=== PATIENT | female | born 1945 | race Caucasian/White ===

== ENCOUNTER 2022-12-13 03:46 | Inpatient (IN) | payer MEDICARE, OTHER ==
[2022-12-13] MEDS ORDERED: Sodium Chloride 0.9% 1,000 ML IV ONE ×2 (04:27→07:00)
[2022-12-13] MEDS ORDERED: Pantoprazole 40 MG Vial IVPUSH ONE (04:28)
[2022-12-13 04:33] LABS: BASOPHILS ABSOLUTE AUTO 0.02 K/mm3 (0.01-0.08); BASOPHILS PERCENT AUTO 0.2 % (0.1-1.2); EOSINOPHILS ABSOLUTE AUTO 0.03 K/mm3 (0.04-0.36); EOSINOPHILS PERCENT AUTO 0.3 (0.7-5.8); HEMATOCRIT 28.1 % (34.1-44.9); HEMOGLOBIN 9.1 gm/dl (11.2-15.7); IMMATURE GRAN ABSOLUTE AUTO 0.03 K/mm3 (0.00-0.10); IMMATURE GRAN PERCENT AUTO 0.3 % (<=1.0); LYMPHOCYTES ABSOLUTE AUTO 2.51 K/mm3 (1.18-3.74); LYMPHOCYTES PERCENT AUTO 22.3 % (19.3-51.7); MEAN CORPUSCULAR HEMOGLOBIN 28.8 pg (25.6-32.2); MEAN CORPUSCULAR HGB CONC 32.4 g/dl (32.2-35.5); MEAN CORPUSCULAR VOLUME 88.9 fl (79.4-94.8); MEAN PLATELET VOLUME 10.8 fl (9.4-12.3); MONOCYTES ABSOLUTE AUTO 0.84 K/mm3 (0.24-0.36); MONOCYTES PERCENT AUTO 7.4 % (4.7-12.5); NEUTROPHILS ABSOLUTE AUTO 7.85 K/mm3 (1.56-6.13); NEUTROPHILS PERCENT AUTO 69.5 % (34.0-71.1); PLATELET COUNT,PLT 257 K/mm3 (182-369); RED BLOOD CELL COUNT 3.16 M/mm3 (3.98-5.22); WHITE BLOOD CELL COUNT,WBC 11.28 K/mm3 (3.98-10.04)
[2022-12-13 04:43] LABS: ALBUMIN 3.2 g/dl (3.4-5.0); ANION GAP 13.6 (5-15); BILIRUBIN TOTAL 0.2 mg/dL (0.2-1.0); BUN/CREATININE RATIO 36.2 (14-18); CALCIUM 8.4 mg/dL (8.5-10.1); CREATININE 1.3 mg/dL (0.55-1.02); EST CRCL DRUG DOSING (CG) 27.75 mL/min; MAGNESIUM 1.4 mg/dL (1.8-2.4); POTASSIUM,K 4.6 mEq/L (3.5-5.1); PROTEIN TOTAL,TP 6.4 g/dl (6.4-8.2)
[2022-12-13] MEDS: Pantoprazole 80 MG in Sodium Chloride 0.9% 100 ML IV SCH ×2 (04:46→14:15)
[2022-12-13 04:47] LABS: PROTHROMBIN TIME 10.7 SECONDS (9.7-12.0)
[2022-12-13 04:48] LABS: D-DIMER QUANTITATIVE 0.3 mg/L (0.19-0.50)
[2022-12-13 04:49] LABS: PTT,PARTIAL THROMBOPLSTIN TIME 23.5 SECONDS (21.7-31.4)
[2022-12-13] MEDS ORDERED: Iopamidol 612 MG/ML 100 ML Bottle IVPUSH ONE (04:50)
[2022-12-13] MEDS ORDERED: Magnesium Sulfate/Water 4 GM in Premix Bag 1 BAG IV ONE (05:45)
[2022-12-13] MEDS ORDERED: Docusate Sodium 100 MG Cap PO PRN (09:13)
[2022-12-13] MEDS: Sodium Chloride 0.9% 1,000 ML IV SCH (09:59)
[2022-12-13] MEDS ORDERED: Acetaminophen 325 MG Tab PO PRN (11:04)
[2022-12-13] MEDS ORDERED: Polyethylene Glycol/Electrolytes 4,000 ML Bottle PO ONE (12:00)
[2022-12-13 15:43] LABS: HEMATOCRIT 24.1 % (34.1-44.9); HEMOGLOBIN 7.6 gm/dl (11.2-15.7)
[2022-12-13] MEDS ORDERED: Sodium Chloride 0.9% 250 ML IV SCH (16:00)
[2022-12-13] MEDS: Lisinopril 20 MG Tab PO SCH (20:43)
[2022-12-14] MEDS: Pantoprazole 80 MG in Sodium Chloride 0.9% 100 ML IV SCH ×3 (00:19→21:59)
[2022-12-14] MEDS: Sodium Chloride 0.9% 1,000 ML IV SCH (00:20)
[2022-12-14 05:16] LABS: BASOPHILS ABSOLUTE AUTO 0.02 K/mm3 (0.01-0.08); BASOPHILS PERCENT AUTO 0.2 % (0.1-1.2); EOSINOPHILS ABSOLUTE AUTO 0.14 K/mm3 (0.04-0.36); EOSINOPHILS PERCENT AUTO 1.3 (0.7-5.8); HEMATOCRIT 26.9 % (34.1-44.9); HEMOGLOBIN 8.9 gm/dl (11.2-15.7); IMMATURE GRAN ABSOLUTE AUTO 0.04 K/mm3 (0.00-0.10); IMMATURE GRAN PERCENT AUTO 0.4 % (<=1.0); LYMPHOCYTES ABSOLUTE AUTO 3.96 K/mm3 (1.18-3.74); LYMPHOCYTES PERCENT AUTO 36.8 % (19.3-51.7); MEAN CORPUSCULAR HEMOGLOBIN 28.9 pg (25.6-32.2); MEAN CORPUSCULAR HGB CONC 33.1 g/dl (32.2-35.5); MEAN CORPUSCULAR VOLUME 87.3 fl (79.4-94.8); MEAN PLATELET VOLUME 10.4 fl (9.4-12.3); MONOCYTES PERCENT AUTO 10.2 % (4.7-12.5); NEUTROPHILS PERCENT AUTO 51.1 % (34.0-71.1); PLATELET COUNT,PLT 188 K/mm3 (182-369); RED BLOOD CELL COUNT 3.08 M/mm3 (3.98-5.22); WHITE BLOOD CELL COUNT,WBC 10.76 K/mm3 (3.98-10.04)
[2022-12-14 05:43] LABS: ALBUMIN 2.7 g/dl (3.4-5.0); ANION GAP 10.7 (5-15); BILIRUBIN TOTAL 0.4 mg/dL (0.2-1.0); BUN/CREATININE RATIO 33.8 (14-18); CREATININE 0.8 mg/dL (0.55-1.02); EST CRCL DRUG DOSING (CG) 45.1 mL/min; PROTEIN TOTAL,TP 5.3 g/dl (6.4-8.2)
[2022-12-14 06:31] LABS: POTASSIUM,K 3.7 mEq/L (3.5-5.1)
[2022-12-14] MEDS: Isosorbide Mononitrate 30 MG Tab.ER PO SCH (11:49)
[2022-12-14] MEDS ORDERED: Lidocaine 1% 4 ML ONE (12:09)
[2022-12-14] MEDS ORDERED: Propofol 200 MG/20 ML SDV ONE (12:10)
[2022-12-14] MEDS ORDERED: ePHEDrine 50 MG/ML SDV ONE (12:22)
[2022-12-14] MEDS ORDERED: Phenylephrine 1% 10 MG/ML SDV ONE (12:37)
[2022-12-14] MEDS: Acetaminophen 325 MG Tab PO PRN (14:31)
[2022-12-14] MEDS ORDERED: Sodium Chloride 0.9% 250 ML ONE (18:03)
[2022-12-14] MEDS: Lisinopril 20 MG Tab PO SCH (21:45)
[2022-12-15] MEDS: Acetaminophen 325 MG Tab PO PRN ×2 (04:53→21:18)
[2022-12-15 06:20] LABS: BASOPHILS ABSOLUTE AUTO 0.02 K/mm3 (0.01-0.08); BASOPHILS PERCENT AUTO 0.2 % (0.1-1.2); EOSINOPHILS ABSOLUTE AUTO 0.19 K/mm3 (0.04-0.36); HEMATOCRIT 24.5 % (34.1-44.9); IMMATURE GRAN ABSOLUTE AUTO 0.07 K/mm3 (0.00-0.10); IMMATURE GRAN PERCENT AUTO 0.7 % (<=1.0); LYMPHOCYTES ABSOLUTE AUTO 3.15 K/mm3 (1.18-3.74); LYMPHOCYTES PERCENT AUTO 33.7 % (19.3-51.7); MEAN CORPUSCULAR HEMOGLOBIN 28.5 pg (25.6-32.2); MEAN CORPUSCULAR HGB CONC 32.7 g/dl (32.2-35.5); MEAN CORPUSCULAR VOLUME 87.2 fl (79.4-94.8); MEAN PLATELET VOLUME 10.7 fl (9.4-12.3); MONOCYTES ABSOLUTE AUTO 0.96 K/mm3 (0.24-0.36); MONOCYTES PERCENT AUTO 10.3 % (4.7-12.5); NEUTROPHILS ABSOLUTE AUTO 4.95 K/mm3 (1.56-6.13); NEUTROPHILS PERCENT AUTO 53.1 % (34.0-71.1); PLATELET COUNT,PLT 156 K/mm3 (182-369); RED BLOOD CELL COUNT 2.81 M/mm3 (3.98-5.22); WHITE BLOOD CELL COUNT,WBC 9.34 K/mm3 (3.98-10.04)
[2022-12-15 06:30] LABS: ANION GAP 9.4 (5-15); BUN/CREATININE RATIO 22.5 (14-18); CREATININE 0.8 mg/dL (0.55-1.02); EST CRCL DRUG DOSING (CG) 45.1 mL/min; POTASSIUM,K 4.4 mEq/L (3.5-5.1)
[2022-12-15] MEDS: Pantoprazole 80 MG in Sodium Chloride 0.9% 100 ML IV SCH ×2 (08:27→17:59)
[2022-12-15] MEDS: Isosorbide Mononitrate 30 MG Tab.ER PO SCH ×2 (08:33→08:36)
[2022-12-15] MEDS: Sodium Chloride 0.9% 1,000 ML IV SCH (19:13)
[2022-12-15] MEDS: Lisinopril 20 MG Tab PO SCH (21:20)
[2022-12-16] MEDS: Sodium Chloride 0.9% 1,000 ML IV SCH (01:45)
[2022-12-16] MEDS: Pantoprazole 80 MG in Sodium Chloride 0.9% 100 ML IV SCH (04:18)
[2022-12-16 06:16] LABS: BASOPHILS ABSOLUTE AUTO 0.02 K/mm3 (0.01-0.08); BASOPHILS PERCENT AUTO 0.3 % (0.1-1.2); EOSINOPHILS ABSOLUTE AUTO 0.23 K/mm3 (0.04-0.36); HEMATOCRIT 24.4 % (34.1-44.9); HEMOGLOBIN 7.8 gm/dl (11.2-15.7); IMMATURE GRAN ABSOLUTE AUTO 0.07 K/mm3 (0.00-0.10); IMMATURE GRAN PERCENT AUTO 0.9 % (<=1.0); LYMPHOCYTES ABSOLUTE AUTO 2.23 K/mm3 (1.18-3.74); LYMPHOCYTES PERCENT AUTO 28.7 % (19.3-51.7); MEAN CORPUSCULAR HEMOGLOBIN 28.7 pg (25.6-32.2); MEAN CORPUSCULAR VOLUME 89.7 fl (79.4-94.8); MEAN PLATELET VOLUME 10.3 fl (9.4-12.3); MONOCYTES ABSOLUTE AUTO 1.14 K/mm3 (0.24-0.36); MONOCYTES PERCENT AUTO 14.7 % (4.7-12.5); NEUTROPHILS ABSOLUTE AUTO 4.09 K/mm3 (1.56-6.13); NEUTROPHILS PERCENT AUTO 52.4 % (34.0-71.1); PLATELET COUNT,PLT 168 K/mm3 (182-369); RED BLOOD CELL COUNT 2.72 M/mm3 (3.98-5.22); WHITE BLOOD CELL COUNT,WBC 7.78 K/mm3 (3.98-10.04)
[2022-12-16 06:31] LABS: ALBUMIN 2.5 g/dl (3.4-5.0); ANION GAP 10.5 (5-15); BILIRUBIN TOTAL 0.4 mg/dL (0.2-1.0); BUN/CREATININE RATIO 21.3 (14-18); CALCIUM 8.7 mg/dL (8.5-10.1); CREATININE 0.8 mg/dL (0.55-1.02); EST CRCL DRUG DOSING (CG) 45.1 mL/min; POTASSIUM,K 4.5 mEq/L (3.5-5.1); PROTEIN TOTAL,TP 5.1 g/dl (6.4-8.2)
[2022-12-16] MEDS: Isosorbide Mononitrate 30 MG Tab.ER PO SCH (08:34)
[2022-12-16] MEDS: Clopidogrel 75 MG Tab PO SCH (16:43)
[2022-12-16] MEDS: Pantoprazole 40 MG Tab.CR PO SCH (16:43)
[2022-12-16] MEDS: Acetaminophen 325 MG Tab PO PRN (20:34)
[2022-12-16] MEDS: Lisinopril 20 MG Tab PO SCH (20:39)
[2022-12-17] MEDS: Acetaminophen 325 MG Tab PO PRN (05:14)
[2022-12-17] MEDS: Pantoprazole 40 MG Tab.CR PO SCH (05:27)
[2022-12-17 06:06] LABS: BASOPHILS ABSOLUTE AUTO 0.02 K/mm3 (0.01-0.08); BASOPHILS PERCENT AUTO 0.3 % (0.1-1.2); EOSINOPHILS PERCENT AUTO 2.7 (0.7-5.8); HEMATOCRIT 24.4 % (34.1-44.9); HEMOGLOBIN 7.6 gm/dl (11.2-15.7); IMMATURE GRAN PERCENT AUTO 1.3 % (<=1.0); LYMPHOCYTES ABSOLUTE AUTO 2.12 K/mm3 (1.18-3.74); LYMPHOCYTES PERCENT AUTO 28.5 % (19.3-51.7); MEAN CORPUSCULAR HEMOGLOBIN 28.4 pg (25.6-32.2); MEAN CORPUSCULAR HGB CONC 31.1 g/dl (32.2-35.5); MEAN PLATELET VOLUME 10.3 fl (9.4-12.3); MONOCYTES PERCENT AUTO 16.1 % (4.7-12.5); NEUTROPHILS ABSOLUTE AUTO 3.81 K/mm3 (1.56-6.13); NEUTROPHILS PERCENT AUTO 51.1 % (34.0-71.1); PLATELET COUNT,PLT 189 K/mm3 (182-369); RED BLOOD CELL COUNT 2.68 M/mm3 (3.98-5.22); WHITE BLOOD CELL COUNT,WBC 7.45 K/mm3 (3.98-10.04)
[2022-12-17 06:32] LABS: ANION GAP 9.4 (5-15); BUN/CREATININE RATIO 24.4 (14-18); CALCIUM 8.7 mg/dL (8.5-10.1); CREATININE 0.9 mg/dL (0.55-1.02); EST CRCL DRUG DOSING (CG) 40.09 mL/min; POTASSIUM,K 4.4 mEq/L (3.5-5.1)
[2022-12-17] MEDS: Clopidogrel 75 MG Tab PO SCH (08:44)
[2022-12-17] MEDS: Isosorbide Mononitrate 30 MG Tab.ER PO SCH (08:44)
== END 2022-12-17 15:03 | disposition home or self-care (01) | DRG 378 ==
LOC: JD.ED 03:46 → JD.MS 06:51
PROVIDERS: ADMIT Internal Medicine; ATTEND Internal Medicine
PROC: 0DJD8ZZ Inspection of Lower Intestinal Tract, Via Natural or Artificial Opening Endoscopic (ICD-10-PCS; principal; 2022-12-14)
DX: K57.31 Diverticulosis of large intestine without perforation or abscess with bleeding (principal); Z68.41 Body mass index [BMI] 40.0-44.9, adult; I25.10 Atherosclerotic heart disease of native coronary artery without angina pectoris; I10 Essential (primary) hypertension; I95.1 Orthostatic hypotension; E83.42 Hypomagnesemia; K59.00 Constipation, unspecified; Z66 Do not resuscitate; E78.00 Pure hypercholesterolemia, unspecified; K21.9 Gastro-esophageal reflux disease without esophagitis; M19.90 Unspecified osteoarthritis, unspecified site; K64.4 Residual hemorrhoidal skin tags; E11.40 Type 2 diabetes mellitus with diabetic neuropathy, unspecified; E66.9 Obesity, unspecified; E11.65 Type 2 diabetes mellitus with hyperglycemia; D64.9 Anemia, unspecified; Z96.653 Presence of artificial knee joint, bilateral; Z98.890 Other specified postprocedural states; Z79.84 Long term (current) use of oral hypoglycemic drugs; Z86.010 Personal history of colon polyps; Z79.82 Long term (current) use of aspirin; Z88.8 Allergy status to other drugs, medicaments and biological substances; Z79.899 Other long term (current) drug therapy; Z90.710 Acquired absence of both cervix and uterus; Z95.5 Presence of coronary angioplasty implant and graft; Z87.891 Personal history of nicotine dependence; Z79.01 Long term (current) use of anticoagulants; Z79.02 Long term (current) use of antithrombotics/antiplatelets; Z90.721 Acquired absence of ovaries, unilateral
CPT/HCPCS: 36415; 36430; 74177; 74177-26; 80048; 80053; 82947; 83735; 83880; 84484; 85014; 85018; 85025; 85379; 85610; 85730; 86850; 86900; 86901; 86922; 93005; 93010; 94760; 96365; 96366; 97116-GP; 97161-GP; 97530-GP; 99285; 99285-25; A9270-GY; C9113; J2370; J2704; J3475; J3490; J7030; J7050; P9016; Q9967

== ENCOUNTER 2022-12-21 12:43 | Emergency (ER) | payer MEDICARE, OTHER ==
[2022-12-21 14:05] LABS: BASOPHILS ABSOLUTE AUTO 0.02 K/mm3 (0.01-0.08); BASOPHILS PERCENT AUTO 0.2 % (0.1-1.2); EOSINOPHILS ABSOLUTE AUTO 0.05 K/mm3 (0.04-0.36); EOSINOPHILS PERCENT AUTO 0.4 (0.7-5.8); IMMATURE GRAN ABSOLUTE AUTO 0.04 K/mm3 (0.00-0.10); IMMATURE GRAN PERCENT AUTO 0.3 % (<=1.0); LYMPHOCYTES ABSOLUTE AUTO 2.24 K/mm3 (1.18-3.74); LYMPHOCYTES PERCENT AUTO 17.4 % (19.3-51.7); MEAN CORPUSCULAR HEMOGLOBIN 28.3 pg (25.6-32.2); MEAN CORPUSCULAR HGB CONC 30.5 g/dl (32.2-35.5); MEAN CORPUSCULAR VOLUME 92.7 fl (79.4-94.8); MEAN PLATELET VOLUME 9.8 fl (9.4-12.3); MONOCYTES ABSOLUTE AUTO 1.34 K/mm3 (0.24-0.36); MONOCYTES PERCENT AUTO 10.4 % (4.7-12.5); NEUTROPHILS ABSOLUTE AUTO 9.18 K/mm3 (1.56-6.13); NEUTROPHILS PERCENT AUTO 71.3 % (34.0-71.1); PLATELET COUNT,PLT 289 K/mm3 (182-369); RED BLOOD CELL COUNT 2.05 M/mm3 (3.98-5.22); WHITE BLOOD CELL COUNT,WBC 12.87 K/mm3 (3.98-10.04)
[2022-12-21 14:09] LABS: HEMOGLOBIN 5.8 gm/dl (11.2-15.7)
[2022-12-21 14:20] LABS: A/G RATIO 0.9 (1-2); ALANINE AMINOTRANSFERASE,ALT 18 U/L (14-59); ALBUMIN 2.8 g/dl (3.4-5.0); ALKALINE PHOSPHATASE 20 U/L (46-116); ANION GAP 12.9 (5-15); ASPARTATE AMNIOTRANSFERASE,AST 15 U/L (15-37); BILIRUBIN TOTAL 0.3 mg/dL (0.2-1.0); BLOOD UREA NITROGEN,BUN 54 mg/dL (7-18); CALCIUM 8.2 mg/dL (8.5-10.1); CARBON DIOXIDE,CO2 24 mEq/L (21-32); CHLORIDE,CL 104 mEq/L (98-107); CREATININE 0.9 mg/dL (0.55-1.02); ESTIMATED GFR 65 mL/min (>60); GLUCOSE RANDOM 124 mg/dL (70-99); POTASSIUM,K 3.9 mEq/L (3.5-5.1); PROTEIN TOTAL,TP 5.9 g/dl (6.4-8.2); SODIUM,NA 137 mEq/L (136-145)
[2022-12-21] MEDS ORDERED: Pantoprazole 40 MG Vial IVPUSH ONE (16:11)
[2022-12-21] MEDS ORDERED: Nystatin Topical Powder 15 GM Bottle TOP SCH (17:00)
== END 2022-12-21 17:40 ==
LOC: JD.ED 12:43
DX: K92.2 Gastrointestinal hemorrhage, unspecified (principal); D64.9 Anemia, unspecified; I25.10 Atherosclerotic heart disease of native coronary artery without angina pectoris; E66.9 Obesity, unspecified; I10 Essential (primary) hypertension; E78.00 Pure hypercholesterolemia, unspecified; Z79.02 Long term (current) use of antithrombotics/antiplatelets; Z95.5 Presence of coronary angioplasty implant and graft; Z79.01 Long term (current) use of anticoagulants; Z79.899 Other long term (current) drug therapy; Z79.82 Long term (current) use of aspirin; Z88.8 Allergy status to other drugs, medicaments and biological substances; Z91.048 Other nonmedicinal substance allergy status
CPT/HCPCS: 36415; 36430; 80053; 85025; 86850; 86900; 86901; 86922; 96374; 99285; A9270; C9113; P9016

== ENCOUNTER 2023-01-16 19:15 | Emergency (ER) | payer MEDICARE, OTHER ==
[2023-01-16 19:45] LABS: BASOPHILS ABSOLUTE AUTO 0.01 K/mm3 (0.01-0.08); BASOPHILS PERCENT AUTO 0.1 % (0.1-1.2); EOSINOPHILS ABSOLUTE AUTO 0.09 K/mm3 (0.04-0.36); EOSINOPHILS PERCENT AUTO 0.8 (0.7-5.8); HEMATOCRIT 34.5 % (34.1-44.9); HEMOGLOBIN 10.8 gm/dl (11.2-15.7); IMMATURE GRAN ABSOLUTE AUTO 0.03 K/mm3 (0.00-0.10); IMMATURE GRAN PERCENT AUTO 0.3 % (<=1.0); LYMPHOCYTES ABSOLUTE AUTO 2.24 K/mm3 (1.18-3.74); LYMPHOCYTES PERCENT AUTO 19.3 % (19.3-51.7); MEAN CORPUSCULAR HEMOGLOBIN 27.9 pg (25.6-32.2); MEAN CORPUSCULAR HGB CONC 31.3 g/dl (32.2-35.5); MEAN CORPUSCULAR VOLUME 89.1 fl (79.4-94.8); MEAN PLATELET VOLUME 9.5 fl (9.4-12.3); MONOCYTES PERCENT AUTO 9.5 % (4.7-12.5); NEUTROPHILS ABSOLUTE AUTO 8.14 K/mm3 (1.56-6.13); PLATELET COUNT,PLT 330 K/mm3 (182-369); RED BLOOD CELL COUNT 3.87 M/mm3 (3.98-5.22); WHITE BLOOD CELL COUNT,WBC 11.61 K/mm3 (3.98-10.04)
[2023-01-16 20:09] LABS: INR 0.99; PROTHROMBIN TIME 10.6 SECONDS (9.7-12.0)
[2023-01-16 20:14] LABS: D-DIMER QUANTITATIVE 0.71 mg/L (0.19-0.50)
[2023-01-16 20:15] LABS: A/G RATIO 0.9 (1-2); ALBUMIN 3.6 g/dl (3.4-5.0); ANION GAP 13.1 (5-15); BILIRUBIN TOTAL 0.3 mg/dL (0.2-1.0); CALCIUM 9.7 mg/dL (8.5-10.1); EST CRCL DRUG DOSING (CG) 36.08 mL/min; POTASSIUM,K 4.1 mEq/L (3.5-5.1); PROTEIN TOTAL,TP 7.5 g/dl (6.4-8.2)
[2023-01-16] MEDS ORDERED: Iopamidol 755 Mg/ML 100 ML Bottle IVPUSH ONE (21:17)
[2023-01-16] MEDS ORDERED: Sodium Chloride 0.9% 100 ML IV SCH (21:30)
== END 2023-01-16 22:57 | disposition home or self-care (01) ==
LOC: JD.ED 19:15
DX: R07.9 Chest pain, unspecified (principal); R10.9 Unspecified abdominal pain; I25.10 Atherosclerotic heart disease of native coronary artery without angina pectoris; I10 Essential (primary) hypertension; E78.00 Pure hypercholesterolemia, unspecified; K21.9 Gastro-esophageal reflux disease without esophagitis; M19.90 Unspecified osteoarthritis, unspecified site; E11.9 Type 2 diabetes mellitus without complications; E66.9 Obesity, unspecified; Z68.41 Body mass index [BMI] 40.0-44.9, adult; Z88.8 Allergy status to other drugs, medicaments and biological substances; Z91.048 Other nonmedicinal substance allergy status; Z79.82 Long term (current) use of aspirin; Z79.02 Long term (current) use of antithrombotics/antiplatelets; Z79.84 Long term (current) use of oral hypoglycemic drugs; Z79.899 Other long term (current) drug therapy
CPT/HCPCS: 36415; 71046; 71260; 74177; 80053; 84484; 85025; 85379; 85610; 93005; 99285; Q9967; 93010; 99284

== ENCOUNTER 2023-05-05 09:58 | Emergency (ER) | payer MEDICARE, OTHER ==
[2023-05-05] MEDS ORDERED: Aspirin 81 MG Tab.Chew PO ONE (10:12)
[2023-05-05] MEDS ORDERED: Sodium Chloride 0.9% 10 ML Syringe FLUSH PRN ×2 (10:12→11:27)
[2023-05-05 10:22] LABS: BASOPHILS PERCENT AUTO 0.4 % (0.0-1.0); EOSINOPHILS ABSOLUTE AUTO 0.1 K/mm3 (0.0-0.4); EOSINOPHILS PERCENT AUTO 1.3 % (0.0-6.0); HEMATOCRIT 39.6 % (37.0-47.0); HEMOGLOBIN 12.4 gm/dl (12.0-16.0); IMMATURE GRAN ABSOLUTE AUTO 0.03 K/mm3 (0.00-0.05); IMMATURE GRAN PERCENT AUTO 0.3 % (0.0-0.4); LYMPHOCYTES ABSOLUTE AUTO 1.9 K/mm3 (1.0-4.8); LYMPHOCYTES PERCENT AUTO 21.2 % (24.0-44.0); MEAN CORPUSCULAR HEMOGLOBIN 25.8 pg (28.0-32.0); MEAN CORPUSCULAR HGB CONC 31.3 g/dl (32.0-36.0); MEAN CORPUSCULAR VOLUME 82.5 fl (83.0-99.0); MEAN PLATELET VOLUME 9.6 fl (9.4-12.3); MONOCYTES ABSOLUTE AUTO 0.7 K/mm3 (0.0-0.8); MONOCYTES PERCENT AUTO 7.9 % (0.0-8.0); NEUTROPHILS ABSOLUTE AUTO 6.3 K/mm3 (1.8-7.7); NEUTROPHILS PERCENT AUTO 68.9 % (41.0-71.0); PLATELET COUNT,PLT 263 K/mm3 (150-400); WHITE BLOOD CELL COUNT,WBC 9.15 K/mm3 (3.9-11.3)
[2023-05-05 10:35] LABS: INR 0.97; PROTHROMBIN TIME 10.4 SECONDS (9.7-12.0)
[2023-05-05 10:37] LABS: D-DIMER QUANTITATIVE 1.45 mg/L (0.19-0.50)
[2023-05-05 10:46] LABS: A/G RATIO 0.8 (1-2); ALBUMIN 3.7 g/dl (3.4-5.0); ANION GAP 11.9 (5-15); BILIRUBIN TOTAL 0.3 mg/dL (0.2-1.0); CALCIUM 9.4 mg/dL (8.5-10.1); CREATININE 0.8 mg/dL (0.55-1.02); EST CRCL DRUG DOSING (CG) 45.1 mL/min; MAGNESIUM 1.5 mg/dL (1.8-2.4); POTASSIUM,K 3.9 mEq/L (3.5-5.1); PROTEIN TOTAL,TP 8.3 g/dl (6.4-8.2)
[2023-05-05] MEDS ORDERED: Iopamidol 755 Mg/ML 100 ML Bottle IVPUSH ONE (11:27)
[2023-05-05] MEDS ORDERED: Sodium Chloride 0.9% 100 ML IV SCH (11:30)
[2023-05-05 13:50] LABS: APPEARANCE,URINE CLEAR (Clear); BILIRUBIN,URINE NEGATIVE (Negative); COLOR,URINE YELLOW (Yellow); GLUCOSE,URINE NEGATIVE (Negative); KETONES,URINE NEGATIVE (Negative); LEUKOCYTE ESTERASE,URINE NEGATIVE (Negative); NITRITE,URINE NEGATIVE (Negative); OCCULT BLOOD,URINE NEGATIVE (Negative); PH,URINE 5.5 (5.0-8.0); PROTEIN,URINE NEGATIVE (Negative); UROBILINOGEN,URINE 0.2 (0.2-1.0)
[2023-05-05] MEDS ORDERED: Heparin Sodium 5,000 Units/ML Vial IVPUSH ONE (13:51)
[2023-05-05] MEDS ORDERED: Heparin Sodium/D5W 25,000 UNITS/500 ML BAG IV SCH (14:00)
== END 2023-05-05 15:20 ==
LOC: JD.ED 09:58
DX: I25.110 Atherosclerotic heart disease of native coronary artery with unstable angina pectoris (principal); I10 Essential (primary) hypertension; E78.00 Pure hypercholesterolemia, unspecified; E11.9 Type 2 diabetes mellitus without complications; E66.9 Obesity, unspecified; M19.90 Unspecified osteoarthritis, unspecified site; I25.2 Old myocardial infarction; Z95.5 Presence of coronary angioplasty implant and graft; Z79.84 Long term (current) use of oral hypoglycemic drugs; Z79.899 Other long term (current) drug therapy; Z79.82 Long term (current) use of aspirin; Z88.6 Allergy status to analgesic agent; Z91.048 Other nonmedicinal substance allergy status; Z68.41 Body mass index [BMI] 40.0-44.9, adult
CPT/HCPCS: 36415; 71045; 71275; 74177; 80053; 81003; 83735; 83880; 84484; 85025; 85379; 85610; 85730; 93005; 96365; 96366; 99285; A9270; J1644; J3490; Q9967; 93010; 99284

== ENCOUNTER 2024-06-09 06:17 | Emergency (ER) | payer MEDICARE, OTHER ==
[2024-06-09] MEDS: Sodium Chloride 0.9% 10 ML Syringe FLUSH PRN (06:25)
[2024-06-09 06:53] LABS: BASOPHILS PERCENT AUTO 0.4 % (0.0-1.0); EOSINOPHILS ABSOLUTE AUTO 0.2 K/mm3 (0.0-0.4); EOSINOPHILS PERCENT AUTO 1.5 % (0.0-6.0); HEMATOCRIT 39.3 % (37.0-47.0); HEMOGLOBIN 12.9 gm/dl (12.0-16.0); IMMATURE GRAN ABSOLUTE AUTO 0.03 K/mm3 (0.00-0.05); IMMATURE GRAN PERCENT AUTO 0.3 % (0.0-0.4); LYMPHOCYTES ABSOLUTE AUTO 2.1 K/mm3 (1.0-4.8); LYMPHOCYTES PERCENT AUTO 21.5 % (24.0-44.0); MEAN CORPUSCULAR HEMOGLOBIN 27.3 pg (28.0-32.0); MEAN CORPUSCULAR HGB CONC 32.8 g/dl (32.0-36.0); MEAN CORPUSCULAR VOLUME 83.3 fl (83.0-99.0); MEAN PLATELET VOLUME 10.3 fl (9.4-12.3); MONOCYTES PERCENT AUTO 9.7 % (0.0-8.0); NEUTROPHILS ABSOLUTE AUTO 6.6 K/mm3 (1.8-7.7); NEUTROPHILS PERCENT AUTO 66.6 % (41.0-71.0); PLATELET COUNT,PLT 256 K/mm3 (150-400); RED BLOOD CELL COUNT 4.72 M/mm3 (4.10-5.30)
[2024-06-09] MEDS: Clopidogrel 75 MG Tab PO ONE (06:55)
[2024-06-09] MEDS: Aspirin 81 MG Tab.Chew PO ONE (06:56)
[2024-06-09 07:17] LABS: A/G RATIO 0.9 (1-2); ALBUMIN 3.6 g/dl (3.4-5.0); ANION GAP 16.8 (5-15); BILIRUBIN TOTAL 0.4 mg/dL (0.2-1.0); CALCIUM 9.7 mg/dL (8.5-10.1); CREATININE 0.9 mg/dL (0.55-1.02); EST CRCL DRUG DOSING (CG) 37.62 mL/min; POTASSIUM,K 3.8 mEq/L (3.5-5.1); PROTEIN TOTAL,TP 7.6 g/dl (6.4-8.2)
== END 2024-06-09 08:55 | disposition home or self-care (01) ==
LOC: JD.ED 06:17
DX: M51.34 Other intervertebral disc degeneration, thoracic region (principal); R07.89 Other chest pain; I10 Essential (primary) hypertension; E78.00 Pure hypercholesterolemia, unspecified; K21.9 Gastro-esophageal reflux disease without esophagitis; E11.9 Type 2 diabetes mellitus without complications; E66.9 Obesity, unspecified; Z68.41 Body mass index [BMI] 40.0-44.9, adult; Z90.710 Acquired absence of both cervix and uterus; Z87.891 Personal history of nicotine dependence; Z79.899 Other long term (current) drug therapy; Z79.84 Long term (current) use of oral hypoglycemic drugs; Z79.82 Long term (current) use of aspirin; Z88.8 Allergy status to other drugs, medicaments and biological substances; Z91.048 Other nonmedicinal substance allergy status
CPT/HCPCS: 36415; 71045; 80053; 83880; 84484; 85025; 86140; 93005; 99284; A9270; J3490; 93010; 99283

== ENCOUNTER 2025-02-12 17:31 | Emergency (ER) | payer MEDICARE, OTHER | END 2025-02-12 19:29 | disposition home or self-care (01) | LOC: JD.ED 17:31 | DX: M79.671 Pain in right foot (principal); E78.00 Pure hypercholesterolemia, unspecified; R53.1 Weakness; E11.9 Type 2 diabetes mellitus without complications; E66.9 Obesity, unspecified; I10 Essential (primary) hypertension; Z88.8 Allergy status to other drugs, medicaments and biological substances; Z79.899 Other long term (current) drug therapy; Z79.84 Long term (current) use of oral hypoglycemic drugs; Z79.01 Long term (current) use of anticoagulants; W18.30XA Fall on same level, unspecified, initial encounter | CPT/HCPCS: 99285; A9270; 99283 ==